=== PATIENT | female | born 1955 | race Caucasian/White ===

== ENCOUNTER 2017-07-24 21:27 | Inpatient (IN) | payer MEDICAID ==
[~2017-07-24] VITALS: Ht 152.4 cm; Wt 91.6 kg
[2017-07-24 21:49] VITALS: BP 158/82
--- NOTE | 2017-07-24 21:59 | NUR ---
PT TAKEN TO [facility] FROM [facility]
--- NOTE | 2017-07-24 23:32 | NUR ---
Dr. Lemons evaluating patient.
[2017-07-25 00:16] LABS: BASOPHILS # (AUTO) 0.3 K/uL (0.00-0.22); BASOPHILS % (AUTO) 3.1 % (0.0-2.0); EOSINOPHILS # (AUTO) 0.2 K/uL (0-0.4); HEMATOCRIT 35.8 % (36-48); HEMOGLOBIN 11.7 g/dL (12.0-16.0); LYMPHOCYTES # (AUTO) 3.5 K/uL (2.5-16.5); MEAN CORPUSCULAR HEMOGLOBIN 28 pg (27-31); MEAN CORPUSCULAR HGB CONC 33 g/dL (33-37); MEAN CORPUSCULAR VOLUME 86 fL (80-94); MONOCYTES # (AUTO) 0.6 K/uL (0.8-1.0); MONOCYTES % (AUTO) 5.2 % (1.7-9.3); NEUTROPHILS # (AUTO) 6.5 K/uL (1.8-7.7); NEUTROPHILS % (AUTO) 58.7 % (42.2-75.2); PLATELET COUNT (AUTO) 260 K/uL (140-450); RED BLOOD CELL COUNT(AUTO) 4.18 MIL/uL (4.20-5.40); RED CELL DISTRIBUTION WIDTH 13.6 % (11.6-13.7); WHITE BLOOD COUNT (AUTO) 11.1 K/uL (4.8-10.8)
[2017-07-25 00:28] LABS: ALBUMIN 3.4 g/dL (3.4-5.0); ANION GAP 14.9 (8-16); CARBON DIOXIDE 26.3 mmol/L (21-32); CREATININE 1.3 mg/dL (0.6-1.3); POTASSIUM 4.2 mmol/L (3.5-5.1); TOTAL BILIRUBIN 0.2 mg/dL (0.0-1.0)
--- NOTE | 2017-07-25 01:03 | NUR ---
PT MOVED TO BED 2
[2017-07-25] MEDS ORDERED: ASPIRIN 81 MG TAB.CHEW PO ONE ×2 (01:05→09:00)
[2017-07-25] MEDS ORDERED: NACL 0.9% 1,000 ML IV ONE (01:05)
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
[2017-07-25] MEDS ORDERED: ASPI-1440 PO (02:20)
[2017-07-25] MEDS ORDERED: GLIP10TA3 PO (02:20)
[2017-07-25] MEDS ORDERED: MORPHINE SULFATE 2 MG/ML SYR IVP PRN (02:20)
[2017-07-25] MEDS ORDERED: DOCUSATE SODIUM 100 MG GELCAP PO PRN (02:20)
[2017-07-25] MEDS ORDERED: ONDANSETRON 4 MG/2 ML VIAL IM/IVP PRN (02:20)
[2017-07-25] MEDS ORDERED: SIMV40TA1 PO (02:20)
[2017-07-25] MEDS ORDERED: KETOROLAC 30 MG/ML VIAL IVP PRN (02:20)
[2017-07-25] MEDS ORDERED: ACETAMINOPHEN 325 MG TAB PO PRN (02:20)
[2017-07-25] MEDS ORDERED: SPIR50TA PO (02:20)
[2017-07-25] MEDS ORDERED: LOSA50TA39 PO (02:20)
[2017-07-25] MEDS ORDERED: HYDROcodone/APAP 7.5/325 MG 1 TAB PO PRN (02:20)
[2017-07-25] MEDS ORDERED: INSULIN LISPRO SLIDING SCALE 100 UNITS/ML VIAL SUBQ PRN (02:35)
[2017-07-25] MEDS ORDERED: DEXTROSE 50% 50 ML SYR IVP PRN (02:35)
--- NOTE | 2017-07-25 02:58 | NUR ---
Patient will be admitted to care of [facility]. Admited to TELE. Will go to room 122B. Belongings list completed. Report to DAV SÁNCHEZ
[2017-07-25] MEDS ORDERED: METOPROLOL 25 MG TAB PO SCH (03:00)
[2017-07-25 03:05] VITALS: BP 144/66
[2017-07-25] MEDS: NACL 0.9% 1,000 ML IV SCH ×2 (03:05→10:44)
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
--- NOTE | 2017-07-25 04:00 | NUR ---
PT SAID OK TO GET PNA VACCINE HERE BUT REFUSED ANY FLU VACCINE. DR. PEREZ CAME AND MADE HIM AWARE.
[2017-07-25 04:32] LABS: APPEARANCE,URINE CLEAR (CLEAR); BILIRUBIN,URINE NEGATIVE (NEGATIVE); BLOOD, URINE 1+ (NEGATIVE); COLOR,URINE YELLOW (YELLOW); LEUKOCYTE ESTERASE ,URINE NEGATIVE (NEGATIVE); NITRITE, URINE NEGATIVE (NEGATIVE); UGLUCOSE NEGATIVE (NEGATIVE)
[2017-07-25 05:04] LABS: RBC,URINE 0-5 (RARE) /HPF (0-5); WBC,URINE 0-5 (RARE) /HPF (0-5)
[2017-07-25 05:21] LABS: BARBITURATE, URINE NEG. ng/ml (NEG <=200); BENZODIAZEPINE, URINE NEG. ng/mL (NEG <=200); CANNABINOID, URINE NEG. ng/mL (NEG <=50); COCAINE, URINE NEG. ng/mL (NEG <=300); OPIATE, URINE NEG. ng/mL (NEG <=2000); PHENCYCLIDINE SCREEN,URINE NEG. ng/mL (NEG <=25)
[2017-07-25] MEDS: BLOOD GLUCOSE MONITORING 1 DEV DEV FS SCH ×4 (06:07→20:28)
[2017-07-25 06:10] VITALS: BP 113/45
--- NOTE | 2017-07-25 06:10 | NUR ---
BP MED NOT GIVEN BP LOW 113/45.
--- NOTE | 2017-07-25 07:25 | NUR ---
ENDORSED PT IN STABLE CONDITION TO AM NURSE.
--- NOTE | 2017-07-25 07:30 | NUR ---
RECEIVED REPORT FROM FERRIS WHEEL OPERATOR NURSE, PT IS RESTING IN BED, AAOX4, AMBULATORY, PT HAS IV ON THE LEFT FA, PATENT, INTACT, FLUSHING WELL, SKIN IS INTACT, NO S/S OF RESPIRATORY DISTRESS OR DISCOMFORT NOTED, DISCUSSED PLAN OF CARE WITH PT, PT VERBALIZED UNDERSTANDING, SAFETY/FALL PRECAUTIONS ARE IN PLACE, CALL LIGHT WITHIN REACH, WILL CONTINUE TO MONITOR.
[2017-07-25] MEDS ORDERED: PNEUMOCOCCAL VACCINE 23 MCG/0.5 ML VIAL IMVAC SCH (09:00)
[2017-07-25] MEDS ORDERED: LOSARTAN 25 MG TAB PO SCH (09:00)
[2017-07-25] MEDS ORDERED: SPIRONOLACTONE 25 MG TAB PO SCH (09:00)
[2017-07-25] MEDS: METOPROLOL 25 MG TAB PO SCH ×2 (09:03→20:48)
--- NOTE | 2017-07-25 09:04 | NUR ---
DUE MEDICATION GIVEN, PT TOLERATED WELL, PATIENT'S DAUGHTER IS AT BEDSIDE, CALL LIGHT WITHIN REACH.
[2017-07-25 09:11] LABS: BASOPHILS # (AUTO) 0.4 K/uL (0.00-0.22); BASOPHILS % (AUTO) 4.3 % (0.0-2.0); EOSINOPHILS # (AUTO) 0.2 K/uL (0-0.4); HEMATOCRIT 33.1 % (36-48); HEMOGLOBIN 10.7 g/dL (12.0-16.0); LYMPHOCYTES % (AUTO) 31.3 % (20.5-51.1); MEAN CORPUSCULAR HEMOGLOBIN 28 pg (27-31); MEAN CORPUSCULAR HGB CONC 32 g/dL (33-37); MEAN CORPUSCULAR VOLUME 86 fL (80-94); MONOCYTES # (AUTO) 0.7 K/uL (0.8-1.0); MONOCYTES % (AUTO) 6.9 % (1.7-9.3); NEUTROPHILS # (AUTO) 5.2 K/uL (1.8-7.7); NEUTROPHILS % (AUTO) 55.5 % (42.2-75.2); PLATELET COUNT (AUTO) 220 K/uL (140-450); RED BLOOD CELL COUNT(AUTO) 3.86 MIL/uL (4.20-5.40); RED CELL DISTRIBUTION WIDTH 13.7 % (11.6-13.7); WHITE BLOOD COUNT (AUTO) 9.5 K/uL (4.8-10.8)
[2017-07-25 10:43] LABS: ANION GAP 13.3 (8-16); CARBON DIOXIDE 24.4 mmol/L (21-32); CREATININE 1.2 mg/dL (0.6-1.3); POTASSIUM 3.7 mmol/L (3.5-5.1)
--- NOTE | 2017-07-25 11:30 | NUR ---
PT RESTING IN BED AT THIS TIME, PATIENT'S FAMILY IS AT BEDSIDE, CALL LIGHT IS WITHIN REACH.
[2017-07-25 12:00] VITALS: BP 130/59
--- NOTE | 2017-07-25 12:37 | NUR ---
PATIENT HAS BEEN SCREENED AND CATEGORIZED MODERATE NUTRITION RISK. PATIENT WILL BE SEEN WITHIN 3-5 DAYS OF ADMISSION. 07/27/17 - 07/29/[address]
--- NOTE | 2017-07-25 13:45 | NUR ---
PT COMPLAINING OF LEFT SHOULDER MUSCLE PAIN. WILL MEDICATE WITH PRN PAIN MEDICATION.
[2017-07-25 16:00] VITALS: BP 100/42
--- NOTE | 2017-07-25 16:00 | NUR ---
PT RESTING IN BED AT THIS TIME, CALL LIGHT IS WITHIN REACH.
[2017-07-25 16:29] LABS: CHOL/HDL RATIO 3.3 (1-4.5); MAGNESIUM 1.7 mg/dL (1.8-2.4); PHOSPHORUS 3.2 mg/dL (2.5-4.9); THYROID STIMULATING HORMONE 2.13 uIU/mL (0.34-3.74)
[2017-07-25] MEDS ORDERED: CYCLOBENZAPRINE 10 MG TAB PO SCH (18:00)
--- NOTE | 2017-07-25 19:20 | NUR ---
ENDORSED PT TO VIDEOTAPE EDITOR NURSE FOR CONTINUITY OF CARE. PT STABLE AT THIS TIME. PT'S FAMILY IS AT BEDSIDE.
--- NOTE | 2017-07-25 19:25 | NUR ---
RECEIVED PT IN STABLE CONDITION FROM AM NURSE. AWAKE ,ALERT AND ORIENTED X4. MALAY SPEAKING. ON TELE MONITOR-SR. AMBULATORY WITH ASSIST. FAMILY AT BEDSIDE. PLAN OF CARE DISCUSSED AND VERBALIZED UNDERSTANDING. NO C/O ANY PAIN NOR DISCOMFORT NOTED. BED ON LOW POSITION. CALL LIGHT PLACED WITHIN EASY REACH. WILL CONTINUE TO MONITOR.
[2017-07-25 20:00] VITALS: BP 109/42
--- NOTE | 2017-07-25 20:05 | NUR ---
DR. PEREZ CAME TO SEE PT. WITH ORDER TO DC HOME TONIGHT . 2 NEW MEDICATIONS PRESCRIPTION GIVEN TO PT/FAMILY WHO ARE WITH PT AT BEDSIDE. MADE AWARE THAT DC PAPERS NEED TO BE DONE.
[2017-07-25] MEDS ORDERED: METO25TA PO (20:21)
[2017-07-25] MEDS ORDERED: NAPR-54 PO (20:21)
--- NOTE | 2017-07-25 20:28 | NUR ---
BLOOD SUGAR WAS CHECKED RESULT 117. NO INSULIN COVERAGE NEEDED.
[2017-07-25 20:29] VITALS: BP 109/42
[2017-07-25] MEDS ORDERED: SIMVASTATIN 40 MG TAB PO SCH (21:00)
--- NOTE | 2017-07-25 21:15 | NUR ---
DISCHARGE INSTRUCTIONS DONE. PT/FAMILY INSTRUCTED ABOUT APPOINTMENT WITH PCP. TEACHINGS GIVEN ABOUT HOME MEDICATIONS AND VERBALIZED UNDERSTANDING. PRESCRIPTION GIVEN TO PT/FAMILY BY DR. PEREZ. DISCHARGED HOME IN STABLE CONDITION WITH ALL PERSONAL BELONGING , ID BAND REMOVED. ACCOMPANIED TO FAMILY CAR BY FINANCIAL SALES REPRESENTATIVE IN WHEELCHAIR.
[2017-07-26] MEDS ORDERED: CYCLOBENZAPRINE 10 MG TAB PO SCH (09:00)
== END 2017-07-25 21:15 | disposition home or self-care (01) | DRG 203 ==
LOC: MED 21:27 → MTU 07-25 02:20
PROVIDERS: ADMIT Family Medicine Sports Medicine; ATTEND Family Medicine Sports Medicine
PROC: 3E0234Z Introduction of Serum, Toxoid and Vaccine into Muscle, Percutaneous Approach (ICD-10-PCS; principal; 2017-07-25)
DX: M94.0 Chondrocostal junction syndrome [Tietze] (principal); D68.59 Other primary thrombophilia; E11.69 Type 2 diabetes mellitus with other specified complication; I10 Essential (primary) hypertension; D64.9 Anemia, unspecified; Z23 Encounter for immunization; E78.00 Pure hypercholesterolemia, unspecified; Z56.0 Unemployment, unspecified; V89.2XXA Person injured in unspecified motor-vehicle accident, traffic, initial encounter; Y93.89 Activity, other specified; Y92.89 Other specified places as the place of occurrence of the external cause; Y99.8 Other external cause status; Z79.84 Long term (current) use of oral hypoglycemic drugs
CPT/HCPCS: 36415; 71045; 80048; 80053; 80305; 81001; 82550; 82948; 83036; 83735; 83880; 84100; 84436; 84443; 84479; 84484; 85025; 85610; 85730; 87081; 90732; 93005; 93925; 93970; 99285; J1815; J1885; J7030; Q0092

== ENCOUNTER 2021-11-14 12:22 | Emergency (ER) | payer MEDICAID ==
[~2021-11-14] VITALS: Ht 149.9 cm; Wt 89.9 kg
[~2021-11-14 12:22] MED LIST: ASPI-1440 PO; GLIP10TA3 PO; LOSA50TA66 PO; METO25TA PO; NAPR-54 PO; SIMV40TA1 PO; SPIR50TA PO
[2021-11-14 12:46] VITALS: BP 164/53
[2021-11-14] MEDS ORDERED: CEPH-588 PO (13:01)
--- NOTE | 2021-11-14 15:17 | NUR ---
CALLED PT AT HOME AT HOME SHE WILL VERIFICATION [facility] AT [facility] AT 18:00
== END 2021-11-14 15:40 | disposition home or self-care (01) ==
LOC: MED 12:22
DX: L60.0 Ingrowing nail (principal); E11.9 Type 2 diabetes mellitus without complications; I10 Essential (primary) hypertension; Z79.899 Other long term (current) drug therapy; Z79.84 Long term (current) use of oral hypoglycemic drugs
CPT/HCPCS: 99283